=== PATIENT | female | born 1990 | race African-American/Black ===

== ENCOUNTER 2023-01-17 16:03 | Inpatient (IN) | payer OTHER ==
[~2023-01-17] VITALS: Ht 172.7 cm; Wt 61.7 kg
--- NOTE | 2023-01-17 16:55 | NUR ---
C/O RIGHT LEG PAIN TODAY 01/10. DENIES TRAUMA.
[2023-01-17] MEDS ORDERED: IBUPROFEN 600 MG TABLET PO ONE (17:30)
[2023-01-17] MEDS ORDERED: IBUPROFEN 600 MG TABLET ONE (17:33)
--- NOTE | 2023-01-17 17:46 | NUR ---
US AT BEDSIDE
[2023-01-17 21:47] LABS: BASOPHILS % (AUTO) 0.4 % (0.0-2.0); EOSINOPHILS % (AUTO) 3.1 % (0.0-6.0); HEMATOCRIT 36 % (33-45); HEMOGLOBIN 11.6 g/dL (11.5-14.8); LYMPHOCYTES # (AUTO) 3.5 K/uL (0.8-4.8); LYMPHOCYTES % (AUTO) 43.3 % (20.0-44.0); MEAN CORPUSCULAR HGB CONC 32 g/dl (31.0-36.0); MEAN CORPUSCULAR VOLUME 70 fL (82-100); MONOCYTES # (AUTO) 0.5 K/uL (0.1-1.30); MONOCYTES % (AUTO) 6.7 % (2.0-12.0); NEUTROPHILS # (AUTO) 3.7 K/uL (1.8-8.9); NEUTROPHILS % (AUTO) 46.5 % (43.0-81.0); PLATELET COUNT (AUTO) 284 K/uL (150-450); RED BLOOD CELL COUNT(AUTO) 5.17 MIL/uL (4.0-5.2)
[2023-01-17 22:01] LABS: CREATININE 0.8 mg/dL (0.6-1.3); POTASSIUM 3.5 mmol/L (3.5-5.1)
--- NOTE | 2023-01-17 22:50 | NUR ---
MOVE SHEET SUBMITTED
--- NOTE | 2023-01-17 22:50 | NUR ---
TATI MELVIN COLLECTED AND SENT TO LAB
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
--- NOTE | 2023-01-17 23:45 | NUR ---
CLINICAL INFORMATION RELAYED TO SRUTHI ELECTRONIC ENGINEERING DRAFTSPERSON. PT IS AUTHORIZED TO STAY.
--- NOTE | 2023-01-17 23:58 | NUR ---
ROOM 323-1
--- NOTE | 2023-01-18 00:19 | NUR ---
IV ESTABLISHED ON RAC 18G
--- NOTE | 2023-01-18 00:27 | NUR ---
REPORT GIVEN TO 3W NURSE AHUJA.
[2023-01-18] MEDS ORDERED: MAGNESIUM HYDROXIDE 30 ML UDC PO PRN (00:30)
[2023-01-18] MEDS ORDERED: ACETAMINOPHEN 325 MG TABLET PO PRN (00:30)
[2023-01-18] MEDS ORDERED: TEMAZEPAM 15 MG CAPSULE PO PRN (00:30)
[2023-01-18] MEDS ORDERED: Z GUARD REMEDY 4 OZ OINT TP PRN (00:30)
[2023-01-18] MEDS ORDERED: MAG HYDROX/AL HYDROX/SIMETH 30 ML UDC PO PRN (00:30)
[2023-01-18] MEDS ORDERED: HYDROCODONE/APAP 10/325MG TABLET PO PRN (00:30)
[2023-01-18] MEDS ORDERED: HYDROCODONE/APAP 5/325MG TABLET PO PRN (00:30)
[2023-01-18] MEDS ORDERED: ONDANSETRON HCL/PF 4 MG/2 ML VIAL IVP PRN (00:30)
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
[2023-01-18 01:15] VITALS: BP 113/65
--- NOTE | 2023-01-18 01:20 | NUR ---
PT TRANSFERRED TO VIA HOSPITAL PROTOCOL
[2023-01-18 01:21] LABS: EOSINOPHILS % (MANUAL) 1 % (0-4); LYMPHOCYTES % (MANUAL) 36 % (16-48); MONOCYTES % (MANUAL) 9 % (0-11.0); NEUTROPHILS % (MANUAL) 51 (42-76); REACTIVE LYMPHOCYTES 3 % (0-0)
[2023-01-18 01:25] VITALS: BP 113/65
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
[2023-01-18 06:36] LABS: CHOLESTEROL 166 mg/dL (<200); HDL CHOLESTEROL 43 mg/dL (40-60); LDL 108 mg/dL (0-99); TRIGLYCERIDES 127 mg/dL (30-150)
--- NOTE | 2023-01-18 07:12 | NUR ---
MS RN OPENING NOTE RECEIVED PT AWAKE IN BED, AOX3-4, ON ROOM AIR WITHOUT ANY DIFFICULTY. NOT SHOWING ANY SIGNS OF ACUTE DISTRESS. AFEBRILE, NO REPORTS OF N/V, PAIN, NOR DISCOMFORT. ASKING IF SHE COULD GO TO [place] WITH A WHEELCHAIR, ADVISED TO WAIT FOR THE MD AND GUSSET EDGER. IV ACCESS ON RAC G#18 SALINE LOCKED, PATENT AND FLUSHING WELL. SAFETY MEASURES IN PLACE: BED IN LOWEST AND LOCKED POSITION, SIDE RAILS UP X2, CALL LIGHT AND TRAY TABLE WITHIN EASY REACH. WILL CONTINUE PLAN OF CARE
--- NOTE | 2023-01-18 07:15 | NUR ---
RN NOTES - PATIENT IS ASKING TO REMOVE THE G-TUBE, EXPLAINED TO NOT PULL IT OUT. PATIENT LISTENED.
--- NOTE | 2023-01-18 07:27 | NUR ---
MS VISUAL TRAINING AIDE CLOSING NOTES PT AWAKE AND WAITING FOR HER BREAKFAST. STABLE SINCE ADMISSION. DENIES ANY PAIN OR ANY DISCOMFORT. NOT IN ANY ACUTE DISTRESS OR ANY DISCOMFORT NOTED. KEPT HER WARM AND COMFORTABLE AT ALL TIMES. ENDORSE TO AM NURSE FOR CONTINUITY OF CARE. MORNING CARE DONE WITH THE HELPED OF JAMI POOL. BED IN LOW AND LOCK IN POSITION WITH SIDE RAILS X2 UP AND BED ALARM SET FOR PT SAFETY,. PLACE CALL LIGHT AT REACH. ENDORSED TO AM NURSE FOR CONTINUITY OF CARE.
[2023-01-18] MEDS ORDERED: PANTOPRAZOLE 40 MG TABLET.DR PO SCH (07:30)
[2023-01-18 08:00] VITALS: BP 113/68
[2023-01-18] MEDS ORDERED: ASPIRIN 81 MG TAB.CHEW PO SCH (09:00)
--- NOTE | 2023-01-18 09:52 | NUR ---
RN NOTES - TEST URINE SAMPLE TAKEN AND PLACED IN REFRIGERATOR, CALLED LAB TO MUSIC THERAPY TEACHER
[2023-01-18] MEDS ORDERED: DOCU-141 PO (11:15)
[2023-01-18] MEDS ORDERED: QUET50TA PO (11:15)
[2023-01-18] MEDS ORDERED: SENN-261 PO (11:15)
[2023-01-18] MEDS ORDERED: ASPI-1169 PO (11:15)
[2023-01-18] MEDS ORDERED: ACET-868 PO (11:15)
[2023-01-18] MEDS ORDERED: METH-647 PO (11:15)
[2023-01-18] MEDS ORDERED: SULF1TAB48 PO (11:15)
[2023-01-18] MEDS ORDERED: MELA1TAB47 PO (11:15)
[2023-01-18] MEDS ORDERED: CEPH500C2 PO (11:15)
[2023-01-18] MEDS ORDERED: LIDO1ADH82 TP (11:15)
[2023-01-18] MEDS ORDERED: POLY17PO4 PO (11:15)
--- NOTE | 2023-01-18 15:00 | NUR ---
RN NOTES - PATIENT IS ASKING FOR A FOLLOW UP ON THE WHEELCHAIR SAYING THAT SHE DOESNT WANT TO STAY ANOTHER NIGHT, EXPLAINED THAT THE CM IS ALREADY WORKING ON HER WHEELCHAIR AND THE ETA IS THIS EVENING, PATIENT IS EAGER TO LEAVE WITH JUST A TAP CARD SAYING SHE WILL GO TO HER DAD IN [place]. WILL COORDINATE WITH MD AND CM. THEY ARE AWARE OF THE PT'S CONDITION AND G-TUBE.
[2023-01-18 15:30] VITALS: BP 119/76
--- NOTE | 2023-01-18 19:20 | NUR ---
MS RN CLOSING NOTE PT AWAKE IN BED, AOX3-4, ON ROOM AIR WITHOUT ANY DIFFICULTY. NOT SHOWING ANY SIGNS OF ACUTE DISTRESS. NO PAIN, NOR DISCOMFORT. IV ACCESS ON RAC G#18 SALINE LOCKED, PATENT AND FLUSHING WELL. ALL NEEDS MET, ALL DUE MEDS GIVEN. SAFETY MEASURES IN MAINTAINED: BED IN LOWEST AND LOCKED POSITION, SIDE RAILS UP X2, CALL LIGHT AND TRAY TABLE WITHIN EASY REACH. ENDORSED TO NIGHT RN.
--- NOTE | 2023-01-18 19:35 | NUR ---
RN OPENING NOTE PATIENT AWAKE IN BED. A/OX4. NO S/S OF DISTRESS, BREATHING WITHOUT DIFFICULTY ON ROOM AIR. RAC #18 HL INTACT AND PATENT. SAFETY MEASURES IN PLACE: BED LOCKED AND AT LOWEST POSITION, RAILS UP X2, CALL [place] WITHIN REACH. WILL CONTINUE TO MONITOR PATIENT.
--- NOTE | 2023-01-18 20:00 | NUR ---
RN NOTE PATIENT'S WHEELCHAIR ARRIVED. PATIENT STABLE; WILL CONTINUE TO MONITOR PATIENT.
--- NOTE | 2023-01-18 20:05 | NUR ---
RN NOTE PATIENT WANTED TO LEAVE AMA. IT WAS EXPLAINED TO PATIENT BENEFITS OF REMAINING IN HOSPITAL FOR CONTINUATION OF CARE. PATIENT WAS ADAMANT ABOUT LEAVING THE HOSPITAL. PATIENT WAS INSTRUCTED IF ANY CONCERNS SHOULD ARISE SHE COULD GO TO THE NEAREST ER - CLOSEST IN PROXIMITY TO HER. AGAIN, PATIENT WAS ENCOURAGED TO STAY. PATIENT STATED SHE DEFINITELY WANTED TO LEAVE. PATIENT SIGNED AMA FORM. PATIENT STABLE.
[2023-01-18 20:19] VITALS: BP 127/71
--- NOTE | 2023-01-18 20:30 | NUR ---
RN NOTE PATIENT STATED SHE WAS READY TO GO AND WAS ACCOMPANIED BY [employer] SUPERVISOR DOWNSTAIRS VIA WHEELCHAIR. ALL BELONGINGS ACCOUNTED FOR. PATIENT STABLE. A/OX4. NO S/S OF DISTRESS; BREATHING WITHOUT DIFFICULTY ON ROOM AIR. PATIENT HAS SIGNED AMA FORM. PATIENT'S ID BAND REMOVED AND DISPOSED OF PER POLICY. IV ACCESS REMOVED. NO BLOOD NOTED.
[2023-01-18] MEDS ORDERED: SIMVASTATIN 20 MG TABLET PO SCH (22:00)
== END 2023-01-18 20:30 | disposition left against medical advice (07) | DRG 342 ==
LOC: ER 16:10 → MED 01-18 00:05
PROVIDERS: ADMIT Nurse Practitioner Acute Care
DX: S82.451A Displaced comminuted fracture of shaft of right fibula, initial encounter for closed fracture (principal); I69.351 Hemiplegia and hemiparesis following cerebral infarction affecting right dominant side; X58.XXXA Exposure to other specified factors, initial encounter; Y92.9 Unspecified place or not applicable; Z98.890 Other specified postprocedural states; Z59.00 Homelessness unspecified; V89.2XXA Person injured in unspecified motor-vehicle accident, traffic, initial encounter; Y92.410 Unspecified street and highway as the place of occurrence of the external cause
CPT/HCPCS: 36415; 72170-TC; 73590-TC; 80048-TC; 80061-TC; 84703-TC; 85025-TC; 87081-TC; 93971-TC; 97112-TC; 97116-TC; 97530-TC; C9803; G0378